=== PATIENT | male | born 1975 | race Caucasian/White ===

== ENCOUNTER 2022-01-29 19:41 | Inpatient (IN) | payer OTHER ==
[2022-01-29 22:37] VITALS: BMI 29.0
[2022-01-30] MEDS ORDERED: NICOTINE POLACRILEX 2 MG GUM BUC PRN (09:10)
[2022-01-30] MEDS ORDERED: IBUPROFEN 600 MG TABLET (FP) PO PRN (09:10)
[2022-01-30] MEDS ORDERED: ONDANSETRON *ODT* 4 MG TABLET SL PRN (09:10)
[2022-01-30] MEDS ORDERED: chlordiazePOXIDE HCL 25 MG CAPSULE PO PRN (09:10)
[2022-01-30] MEDS ORDERED: BENZOCAINE/MENTHOL (CHLORASEPTIC ) LOZENGE MM PRN (09:10)
[2022-01-30] MEDS ORDERED: BISMUTH SUBSALICYLATE 524 MG/30 ML PO PRN (09:10)
[2022-01-30] MEDS ORDERED: MAGNESIUM HYDROX 2400MG/30ML ORAL SUSPENSION 30 ML CUP PO PRN (09:10)
[2022-01-30] MEDS ORDERED: NALOXONE HCL (KLOXXADO) 8 MG SPRAY NS PRN (09:10)
[2022-01-30] MEDS ORDERED: METHOCARBAMOL 500 MG TABLET PO PRN (09:10)
[2022-01-30] MEDS ORDERED: DICYCLOMINE HCL 10 MG CAPSULE PO PRN (09:10)
[2022-01-30] MEDS ORDERED: ACETAMINOPHEN 325 MG TABLET (FP) PO PRN ×2 (09:10)
[2022-01-30] MEDS ORDERED: IBUPROFEN 400 MG TABLET (FP) PO PRN (09:10)
[2022-01-30] MEDS ORDERED: NICOTINE 10 MG CARTRIDGE (INHALER) IH PRN (09:10)
[2022-01-30] MEDS ORDERED: LOPERAMIDE HCL 2 MG CAPSULE PO PRN (09:10)
[2022-01-30] MEDS ORDERED: MAGNESIUM CITRATE 300 ML BOTTLE PO PRN (09:10)
[2022-01-30] MEDS ORDERED: ALBUTEROL SO4 HFA INHALER IH PRN (09:13)
[2022-01-30] MEDS: PRENATAL VITAMINS W/ FOLIC ACID TABLET (FP) PO SCH (11:28)
[2022-01-30] MEDS: hydrOXYzine PAMOATE 25 MG CAPSULE (FP) PO SCH ×4 (11:28→22:33)
[2022-01-30] MEDS: chlordiazePOXIDE HCL 25 MG CAPSULE PO SCH ×3 (11:28→22:32)
[2022-01-30] MEDS ORDERED: FLU VACC QS2022-23(6MOS UP)/PF 60 MCG/0.5 ML SYRINGE IM ONE (12:00)
[2022-01-30 15:03] LABS: HEMOGLOBIN 13.8 GM/dL (11.7-16.9); MCH 31.5 pg (25.7-33.7); MCHC 33.7 g/dl (32.0-35.9); MEAN CELL VOLUME 93.5 fl (80-96); MEAN PLT VOLUME 9.7 fl (7.5-11.1); PLATELET COUNT 194 10^3/uL (134-434); RBC 4.38 M/mm3 (4.00-5.60); RDW 13.1 % (11.9-15.9); WHITE BLOOD COUNT 4.7 K/mm3 (4.0-10.0)
[2022-01-30 15:06] LABS: CALCIUM 9.3 mg/dL (8.5-10.1)
[2022-01-30 15:07] LABS: ALBUMIN 3.9 g/dl (3.4-5.0); BLOOD UREA NITROGEN 18.6 mg/dL (7-18)
[2022-01-30 15:11] LABS: TOT PROT 7.3 g/dl (6.4-8.2)
[2022-01-30 15:12] LABS: BILIRUBIN,TOTAL 0.4 mg/dL (0.2-1)
[2022-01-30] MEDS: PANTOPRAZOLE 40 MG TABLET PO SCH (15:23)
[2022-01-30] MEDS: MAG HYDROX/AL HYDROX/SIMETH 30 ML UNIT-DOSE CUP PO PRN (20:51)
[2022-01-30] MEDS ORDERED: MELATONIN 5 MG TABLETS PO SCH (22:00)
[2022-01-30] MEDS ORDERED: THIAMINE HCL 100 MG TABLET (FP) PO SCH (22:00)
[2022-01-31] MEDS: chlordiazePOXIDE HCL 25 MG CAPSULE PO SCH ×3 (06:13→18:28)
[2022-01-31] MEDS: hydrOXYzine PAMOATE 25 MG CAPSULE (FP) PO SCH ×4 (06:13→18:28)
[2022-01-31] MEDS: PANTOPRAZOLE 40 MG TABLET PO SCH (11:09)
[2022-01-31] MEDS: PRENATAL VITAMINS W/ FOLIC ACID TABLET (FP) PO SCH (11:12)
[2022-01-31] MEDS ORDERED: GABAPENTIN 100 MG CAPSULE PO SCH (14:00)
[2022-01-31] MEDS: MAG HYDROX/AL HYDROX/SIMETH 30 ML UNIT-DOSE CUP PO PRN (15:34)
[2022-01-31 21:08] VITALS: BP 135/83; PULSE 79; RESP 18; TEMP 97
[2022-01-31] MEDS ORDERED: traZODone HCL 100 MG TABLET (FP) PO SCH (22:00)
[2022-01-31] MEDS ORDERED: traZODone HCL 50 MG TABLET (FP) PO SCH (22:00)
[2022-02-01] MEDS ORDERED: chlordiazePOXIDE HCL 25 MG CAPSULE PO SCH (05:00)
[2022-02-02] MEDS ORDERED: chlordiazePOXIDE HCL 10 MG CAPSULE PO PRN
[2022-02-02] MEDS ORDERED: chlordiazePOXIDE HCL 10 MG CAPSULE PO SCH (05:00)
[2022-02-03] MEDS ORDERED: chlordiazePOXIDE HCL 10 MG CAPSULE PO SCH (05:00)
[2022-02-04] MEDS ORDERED: chlordiazePOXIDE HCL 10 MG CAPSULE PO ONE (05:00)
== END 2022-01-31 21:20 | disposition left against medical advice (07) | DRG 770 ==
LOC: YASAS 19:41 → Y3N 01-30 08:50
PROVIDERS: ADMIT Allergy & Immunology; ATTEND Surgery
PROC: HZ2ZZZZ Detoxification Services for Substance Abuse Treatment (ICD-10-PCS; principal; 2022-01-30)
DX: F10.230 Alcohol dependence with withdrawal, uncomplicated (principal); F15.20 Other stimulant dependence, uncomplicated; F12.20 Cannabis dependence, uncomplicated; F17.210 Nicotine dependence, cigarettes, uncomplicated; F31.9 Bipolar disorder, unspecified; I10 Essential (primary) hypertension; J45.909 Unspecified asthma, uncomplicated; G47.00 Insomnia, unspecified; Z28.310 Unvaccinated for COVID-19; Z28.29 Immunization not carried out because of patient decision for other reason; Z91.19 Patient's noncompliance with other medical treatment and regimen; Z91.011 Allergy to milk products; Z91.013 Allergy to seafood
CPT/HCPCS: 36415; 80053; 85027; 86780; C9803-CS; Q0162; U0003; U0005